=== PATIENT | female | born 1940 | race Caucasian/White ===

== ENCOUNTER → 2016-07-06 | Outpatient (CLI) | payer OTHER ==
[~2016-07-06] VITALS: Ht 170.2 cm; Wt 99.7 kg
[~2016-07-06] MED LIST: ASPIR 8181 MG PO; ASTELIN NASAL SPRAY; ATIVAN0.5 MG PO; BENADRYL25 MG PO; BUSPIRONE HCL15 MG PO; CLARITIN10 MG PO; ERY-TAB250 MG PO; ESTRACE0.5 MG PO; ESTRADIOL 1 MG T1 M1 PO; FLEXERIL PO; FLUCONAZOLE NASAL; HUMALOG100 UNIT/1 SUBQ; HYDROCODONE-AP1 EAC6 PO; KLOR-CON 1010 MEQ PO; LEVEMIR SUBQ; LIPITOR 20 MG T20 M1 PO; MAGNESIUM OXID200 MG PO; NEURONTIN 300300 M1 PO; NOVOFINE SUBQ; NOVOLOG100 UNIT/1 SUBQ; OXYGEN; PEPCID20 MG PO; POTASSIUM CHLO10 MEQ PO; PROAIR HFA8.5 GM; PROTONIX40 M1 PO; QVAR8.7 G1 IH; REQUIP 0.25 M0.25 M1 PO; SYMBICORT160 MCG/4. INH; TRIAMTERENE-HC1 EAC1 PO; VENTOLIN HFA 1818 GM INH; VITAMIN D3400 UNIT PO
--- NOTE | ~2016-07-06 | HPC ---
[facility] [address] [place] [address] PAIN MANAGEMENT CONSULTATION Name: KELI EISENBERG AVA Room #: REG [facility] M..#: [id number] Admission: 07/06/16 Attend Phys: Stephan Montero DO Discharge: Date of : 42 Report #: [id number] THIS REPORT FOR: //name// CC: Stephan Mosqueda DATE OF SERVICE: 07/06/2016 REFERRING PHYSICIAN: Suleiman Do MD CHIEF COMPLAINT: Low back pain, lower extremity pain with paresthesias. HISTORY OF PRESENT ILLNESS: As you know, the patient is a 75-year-old female who has returned today in followup visit to discuss her treatment options for ongoing pain. She indicates that her "sciatic pain" is now intensified. She states she can barely stand or do any activities due to ongoing pain. She places current pain score at around 7/10. She returns today to discuss treatment options. ALLERGIES: SULFA, BACTRIM, ZYRTEC, LEVOFLOXACIN, FLUCONAZOLE and CYCLOBENZAPRINE. CURRENT MEDICATIONS: Lorazepam, atorvastatin, pantoprazole, estradiol, hydrocodone, insulin, magnesium, erythromycin, albuterol, buspirone, Symbicort, cholecalciferol, triamterene/hydrochlorothiazide, potassium, famotidine and gabapentin. IMAGING: No new imaging available. PHYSICAL EXAMINATION: GENERAL: Well developed, well nourished, well-hydrated exogenously obese 75-year-old female appearing stated age, placing current pain score at around 7/10. HEENT: Normocephalic, atraumatic. Pupils equal, round, reactive to light. Extraocular muscles are intact. EXTREMITIES: Show no clubbing, no cyanosis, no edema. MUSCULOSKELETAL: Lower extremity strength equal and symmetrical 5/5, intact to light touch from L1 through S2 dermatomes. Seated straight leg raising negative. Supine straight leg raising positive. ASSESSMENT: 1. Chronic lumbar radiculopathy. 2. Spinal stenosis of lumbar spine. 3. Displacement of lumbar intervertebral disk with radiculopathy. 4. Lumbosacral spondylosis with radiculopathy. [facility] [address] [place] [address] PAIN MANAGEMENT CONSULTATION Name: KELI EISENBERG AVA Room #: REG [facility].#: [id number] Admission: 07/06/16 Attend Phys: Stephan Montero DO Discharge: Date of : 42 Report #: [id number] 5. Lumbar degeneration. 6. Chronic intractable pain. PLAN: 1. The patient returns today in followup visit for medication management. She has done fairly well with the gabapentin taking 2 tabs in the morning and 3 tabs at night. She has requested refill of the medication at this time. She does feel that it provides some benefit without side effects of somnolence, decreased mental acuity, disorientation and confusion. We will continue the patient on this medication at this time. She was given a prescription of #150, 300 mg tablets, 2 in the morning, 3 at night with 2 refills, 3 months' worth of medication. 2. The patient and I had a very long discussion about options for treatment including spinal cord stimulator and surgical options. She is going to look into the spinal cord stimulator as an option for treatment. The patient was given information both in digital and written form today about the spinal cord stimulator. She does need to complete psychiatric evaluation and be deemed an appropriate candidate before we can move forward with the trial. Once she has undergone the psychiatric evaluation, we will then begin planning for trial implantation. The patient was given this information today on the psychiatrist who performs this evaluation. 3. The patient will return to our clinic once she has completed her psychiatric evaluation. At that time, we will begin the planning process of undergoing trial implantation. She will contact us to advise us when she has completed the psychiatric evaluation so that we can have her scheduled back to review the findings of the psychiatric evaluation. We are recommending to this patient the Nevro device for implantation for spinal cord stimulator treatment. <ELECTRONICALLY SIGNED> By: Stephan Montero DO 07/08/16 0753 [id number] Stephan Montero DO /nt
[2016-07-06 09:54] VITALS: BP 133/67
== END ==
LOC: PAIN 06:53
DX: M51.16 Intervertebral disc disorders with radiculopathy, lumbar region (principal); M48.06 Spinal stenosis, lumbar region; M47.26 Other spondylosis with radiculopathy, lumbar region; G89.29 Other chronic pain

== ENCOUNTER → 2017-03-01 | Outpatient (CLI) | payer OTHER ==
[~2017-03-01] VITALS: Ht 170.2 cm; Wt 90.4 kg
[~2017-03-01] MED LIST changes: +LEVEMIR FL100 UNIT/2; +PROAIR HFA8.5 GM PO; +STIOLTO RESPIMAT4 GM
--- NOTE | ~2017-03-01 | HPC ---
[facility] [place] [address] PAIN MANAGEMENT CONSULTATION Name: KELI EISENBERG AVA Room #: REG LUCIA [facility].#: [id number] Admission: 03/01/17 Attend Phys: Stephan Montero DO Discharge: Date of : 42 Report #: [id number] THIS REPORT FOR: //name// CC: Stephan Mosqueda DATE OF SERVICE: 03/01/2017 REFERRING PHYSICIAN: Dr. Do. CHIEF COMPLAINT: Low back pain, lower extremity pain with paresthesias, and right knee pain. HISTORY OF PRESENT ILLNESS: As you know, the patient is a 76-year-old female who returns today in followup visit with 2 different pain generators, one involves the low back radiating down the leg, the other is the right knee. The patient has sought surgical consultation with orthopedics in regards to a total knee arthroplasty on the right. She does have plans to undergo this procedure in the near future. She has been seen by orthopedics, they have advised her total knee arthroplasty, but has yet to make the decision to move forward with surgery. She continues to experience low back pain, lower extremity pain with paresthesias, for which she is seeking evaluation by doctors at [facility] Neurosurgery team. She returns today to discuss continuation of gabapentin therapy as she is finding improvement in symptoms. She is placing pain score 2/10. ALLERGIES: SULFA, BACTRIM, ZYRTEC, LEVOFLOXACIN, FLUCONAZOLE, and CYCLOBENZAPRINE. CURRENT MEDICATIONS: Lorazepam, atorvastatin, pantoprazole, estradiol, hydrocodone, insulin, magnesium, erythromycin, albuterol, buspirone, Symbicort, cholecalciferol, triamterene/hydrochlorothiazide, potassium, famotidine, and gabapentin. IMAGING: No new imaging available. PHYSICAL EXAMINATION: VITAL SIGNS: Blood pressure 112/76, pulse 102, respiratory rate 20 and unlabored, the patient is 97% on room air, height 5 feet 7 inches tall, weight 199.2 pounds, and BMI calculated 31.2. GENERAL: Well-developed, well-nourished, well-hydrated, exogenously obese 76-year-old female, appearing her stated age, placing current pain score 2/10. HEENT: Normocephalic, atraumatic. Pupils are equal, round, and reactive to light. Extraocular muscles are intact. EXTREMITIES: Show no clubbing, no cyanosis, and no edema. [address] [address] PAIN MANAGEMENT CONSULTATION Name: KELI EISENBERG [facility]#: [id number] Admission: 03/01/17 Attend Phys: Stephan Montero DO Discharge: Date of : 42 Report #: [id number] MUSCULOSKELETAL: Lower extremity strength is symmetrical 5/5, intact to light touch from L1 through S2 dermatomes. Seated straight leg raising negative. Supine straight leg raising mildly positive. Janell's test negative. There is noted pain with standing from seated position over the right knee. Active and passive range of motion of the right knee intensifies knee pain. Drawer tests both anterior and posterior negative. Lateral collateral and medial collateral ligaments are intact. ASSESSMENT: 1. Chronic lumbar radiculopathy. 2. Spinal stenosis of the lumbar spine. 3. Displacement of lumbar intervertebral disk with radiculopathy. 4. Lumbosacral spondylosis with radiculopathy. 5. Lumbar degeneration. 6. Right knee osteoarthritis. 7. Chronic intractable pain. PLAN: 1. The patient has returned today in followup visit with 2 different pain generators, the #1 pain generator is in low back and lower extremity secondary to spinal stenosis. The patient is discussing surgical intervention to help with low back pain secondary to spinal stenosis. The patient has appointments with neurosurgery at [facility]. She has plans to have this consultation in the next couple of weeks. She wishes to await their evaluation before moving forward with other treatment options. As you are aware, the patient has had epidural injections, she has had medication management, all of which have provided improvement in symptoms, but only transiently. She remains on gabapentin for which she has questions in regards to today. She does wish to move forward with a surgical consultation to determine if she might be a candidate for surgery. The patient has requested that we provide her neurosurgery team with recent paperwork, we will send what we have available. 2. The patient has questions in regards to her gabapentin, I would recommend continuing the gabapentin at this time, she is at 900 mg at night, this appears to be providing some benefit as the patient's pain today is 2/10. She indicates that she has been having some increased upper extremity and lower extremity swelling, this could be due to the gabapentin, though this would be an unusual presentation given the upper extremity swelling. I would recommend she remain on the gabapentin if plans are to have surgery in the next couple of weeks. If surgery is not planned, then I would have the patient to begin reducing gabapentin to determine if she is receiving any benefit with use. She was provided a refill of her gabapentin today, 300 mg tablets 3 tabs p.o. at bedtime, #90, 2 refills. 3. The patient is following up with her orthopedic surgeon in regards to right knee osteoarthritis, apparently she has been evaluated and advised that she would need a total knee arthroplasty. The patient will need to follow up with orthopedics in regards to this issue. [facility] [address] [place] [address] PAIN MANAGEMENT CONSULTATION Name: KELI EISENBERG AVA Room #: REG LUCIA [facility]#: [id number] Admission: 03/01/17 Attend Phys: Stephan Montero DO Discharge: Date of : 42 Report #: [id number] 4. We will see the patient back in followup visit on an as needed basis for continuation of medication therapy, certainly we would see her back if epidurals are requested. <ELECTRONICALLY SIGNED> By: Stephan Montero DO 03/09/17 0902 [id number] Stephan Montero DO /nt
[2017-03-01 10:39] VITALS: BP 112/76
== END ==
LOC: PAIN 06:54
DX: M54.16 Radiculopathy, lumbar region (principal); M47.897 Other spondylosis, lumbosacral region; M17.11 Unilateral primary osteoarthritis, right knee; M48.061 Spinal stenosis, lumbar region without neurogenic claudication; G89.29 Other chronic pain; Z88.2 Allergy status to sulfonamides; Z88.1 Allergy status to other antibiotic agents; Z88.6 Allergy status to analgesic agent; Z88.8 Allergy status to other drugs, medicaments and biological substances

== ENCOUNTER → 2017-11-01 | Outpatient (CLI) | payer OTHER ==
[~2017-11-01] VITALS: Ht 172.7 cm; Wt 102.1 kg
--- NOTE | ~2017-11-01 | HPC ---
[facility] [address] [place] [address] PAIN MANAGEMENT CONSULTATION Name: KELI EISENBERG AVA Room #: REG LUCIA [facility].#: [id number] Admission: 11/01/17 Attend Phys: Stephan Montero DO Discharge: Date of : 42 Report #: [id number] THIS REPORT FOR: //name// CC: Stephan Mosqueda DATE OF SERVICE: 11/01/2017 CHIEF COMPLAINT: Low back pain, lower extremity pain with paresthesias, right knee pain. HISTORY OF PRESENT ILLNESS: As you know, the patient is a 77-year-old female with longstanding history of low back pain, lower extremity pain with paresthesias and intermittent right knee pain due to osteoarthritis. The patient returns today in followup visit for continuation of medication therapy. She feels the gabapentin 900 mg at night is working beneficially for pain control. She returns requesting 3-month prescriptions as the cost of this medication is much reduced when receiving 3-month prescriptions. She does indicate recent change in her medical history. She is apparently suffering from fairly extensive and serious cirrhosis of the liver. The patient reports off and on alcohol user and is concerning that the patient may be experiencing side effects of medications. Her primary care physician is working this up currently. She returns for the refill of gabapentin to continue analgesic benefit. ALLERGIES: SULFA, BACTRIM, ZYRTEC, LEVOTHYROXINE, FLUCONAZOLE AND CYCLOBENZAPRINE. CURRENT MEDICATIONS: Aspirin, diphenhydramine, loratadine, famotidine, albuterol, triamterene/hydrochlorothiazide, cholecalciferol, Symbicort, buspirone, magnesium oxide, estradiol, pantoprazole, atorvastatin, insulin, potassium, lorazepam, hydrocodone, tiotropium bromide, gabapentin. SOCIAL HISTORY: The patient reports herself as a nonsmoker. Denies IV or illicit drug use. Admits to minimal alcohol intake per week. She is unaccompanied today. IMAGING: No new imaging available. PQRS: The patient has osteoarthritis of the bilateral hips, bilateral knees and bilateral shoulders. She has a diagnosis of rheumatoid arthritis. She is not a fall risk, has not had a fall in the last 3 months. She is not on blood thinner. She is treated for hypertension. She has not been on opioids for greater than 6 months. She has a low assessment risk for opioid dependency. She places functional pain impact score of 40/70. Moderate interference. [address] [address] PAIN MANAGEMENT CONSULTATION Name: KELI EISENBERG [facility] Room #: REG [facility].#: [id number] Admission: 11/01/17 Attend Phys: Stephan Montero DO Discharge: Date of : 42 Report #: [id number] PHYSICAL EXAMINATION: VITAL SIGNS: Blood pressure 126/68, pulse 81, respiratory rate 16 and unlabored. The patient is 100% on room air. Height 5 feet 8 inches tall, weight 225 pounds, BMI calculated 34.2. GENERAL: Well-developed, well-nourished, well-hydrated 77-year-old female, appearing her stated age, placing current pain score at around 2/10. HEENT: Normocephalic, atraumatic. Pupils are equal, round, reactive to light. Extraocular muscles are intact. Sclerae nonicteric without injection. EXTREMITIES: Show no clubbing, no cyanosis, no edema. MUSCULOSKELETAL: Lower extremity strength is symmetrical 5/5, intact to light touch from L1 through S2 dermatomes. Seated straight leg raising negative. Supine straight leg raising is mildly positive. Janell's test negative. ASSESSMENT: 1. Chronic lumbar radiculopathy. 2. Spinal stenosis of the lumbar spine. 3. Displacement of lumbar intervertebral disk with radiculopathy. 4. Lumbosacral spondylosis with radiculopathy. 5. Lumbar degeneration. 6. Osteoarthritis of the weightbearing joints. 7. Chronic intractable pain. PLAN: 1. The patient returns today in followup visit where she is described to workup for cirrhosis of the liver. Apparently, there is a very advanced disease process. They are looking into medications as the source of her symptoms as she reports herself as a nonalcohol user. She returns today stating that she has had no symptoms from chronic liver disease to date. Apparently, she was being evaluated for fatty liver in the past, but this apparently now is looking more like a severe cirrhosis issue. We will defer to the primary team for further evaluation and treatment for this condition. 2. The patient has returned today requesting refill on gabapentin. She feels gabapentin works very well for pain control. She indicates that the medication provides no side effects and does provide good efficacy of relieving to pain level of only 2/10, which is tolerable for her. I advised the patient at this time that gabapentin is safe even in chronic liver patient's as it does not require any metabolism and does not utilize the cytochrome P450 system. In fact, this medication is fully excreted 100% as gabapentin. This is safe for the patient at this time, no adjustments need to be made. 3. The patient was provided a prescription of gabapentin 300 mg dose 3 tabs p.o. at bedtime. I have given the patient #270, which is 3 months' worth of prescriptions and 3 refills, equaling 1 year of medication. 4. We will see the patient back in followup visit in 1 year for medication therapy. She can follow up with her PCP to receive this medication and will [facility] [address] [place] [address] PAIN MANAGEMENT CONSULTATION Name: ELGINKELI AVA Room #: REG LUCIA Gal[facility]iz#: [id number] Admission: 11/01/17 Attend Phys: Stephan Montero DO Discharge: Date of : 42 Report #: [id number] return to see us when she runs low of the treatment or requires any interventional treatments. <ELECTRONICALLY SIGNED> By: Stephan Montero DO 11/08/17 1259 [id number] 38 Stephan Montero DO /nt
[2017-11-01 12:27] VITALS: BP 126/68
== END ==
LOC: PAIN 07:16
DX: M47.27 Other spondylosis with radiculopathy, lumbosacral region (principal); M51.16 Intervertebral disc disorders with radiculopathy, lumbar region; M48.061 Spinal stenosis, lumbar region without neurogenic claudication; G89.4 Chronic pain syndrome; M17.0 Bilateral primary osteoarthritis of knee; M19.011 Primary osteoarthritis, right shoulder; M19.012 Primary osteoarthritis, left shoulder; Z79.899 Other long term (current) drug therapy

== ENCOUNTER → 2018-10-03 | Outpatient (CLI) | payer OTHER | LOC: RAD 10:21 | DX: J44.9 Chronic obstructive pulmonary disease, unspecified (principal); J98.4 Other disorders of lung; M47.814 Spondylosis without myelopathy or radiculopathy, thoracic region; Z88.8 Allergy status to other drugs, medicaments and biological substances; Z88.2 Allergy status to sulfonamides; Z90.49 Acquired absence of other specified parts of digestive tract ==

== ENCOUNTER → 2018-11-07 | Outpatient (CLI) | payer OTHER ==
[~2018-11-07] VITALS: Ht 172.7 cm; Wt 100.2 kg
[2018-11-07 13:19] VITALS: BP 151/62
--- NOTE | 2018-11-07 13:41 | NUR ---
Pain Clinic Assessment: 1. History of Osteoarthritis: HANDS LEFT HIP ARMS LEGS History of Rheumatoid Arthritis: DENIES 2. Height: 5 ft. 8 in. 172.7 cm. Weight: 220.8 lb. oz. 100.154 kg. Patient's BMI: 33.6 3. Vital Signs: BP: 151/62 Pulse: 70 Resp: 16 Temp: 02 Sat: 97 ECG Mon: 4. Pain Intensity: 6 5. Fall Risk: Dizziness: Y Needs help standing or walking: N Fallen in the last 3 months: N Fall risk comments: 6. Patient on Blood Thinner: None 7. History of Hypertension: N 8. Opioid Therapy greater than 6 weeks: N Opiate Contract Signed: 9. Risk Assessment Tool Provided: 3-LOW 10. Functional Assessment Tool: 11. Recreational Drug Use: Never Drug Type: Tobacco Use: Former Smoker Tobacco Type: Amount or Packs/day: How Many Years: Alcohol Use: Past use Frequency: Quant:
--- NOTE | 2018-11-08 08:46 | HPC ---
[facility] [address] [place] [address] PAIN MANAGEMENT CONSULTATION Name: ELGINKELICORA ESCALANTE Room #: REG [facility].#: [id number] Admission: 11/07/18 Attend Phys: Latrice Hearn Discharge: Date of : 42 Report #: [id number] THIS REPORT FOR: //name// CC: Latrice Hearn Noah Mosqueda DATE OF SERVICE: 11/07/2018 CHIEF COMPLAINT: Low back pain, left lower extremity pain and paresthesias and right knee pain. HISTORY OF PRESENT ILLNESS: This is a 78-year-old female, who returns to the pain clinic for her longstanding history of low back pain and lower extremity pain, most specifically her left hip and right leg as well as ongoing hand pain. She does use gabapentin to help relieve some of this discomfort and find it very beneficial and would like a refill of these medications today. She tells me she has cirrhosis of the liver, reports that it is a non-alcoholic related, though she does have a history of alcohol use in the past. She tells me she is being worked up and followed by her primary physician and specialist, though she is looking for different specialists and unsure of those names currently. The patient reports a pain score of 6/10, worse with walking and activity. ALLERGIES: SULFA, BACTRIM, ZYRTEC, LEVAQUIN, LATEX, MOLD, CYCLOBENZAPRINE. CURRENT LIST OF MEDICATIONS: Gabapentin 300 mg at bedtime, Levemir insulin, lorazepam 0.5 mg b.i.d., potassium 10 mEq b.i.d., insulin Humalog sliding scale, atorvastatin 20 mg at bedtime, Protonix 40 mg daily, Mag-Ox daily, buspirone 15 mg half in the morning, one at night, vitamin D3, triamterene/hydrochlorothiazide daily, Pepcid daily, Benadryl p.r.n., and 81 mg aspirin. PQRS: 1. She has arthritic changes in her hips, bilateral knees, shoulders and hands. She has a diagnosis of rheumatoid arthritis as well. 2. Height is 5 feet 8 inches, weight is 220, BMI is 33. 3. Vital signs 151/62, pulse is 70, respirations 16, oxygen sat is 97. 4. Pain score 6/10. 5. Complains of slight dizziness, does not need help walking or standing, has not fallen in the last 3 months. 6. The patient is not on any blood thinners and does not take medicine for hypertension. 7. She does not take opioid therapy. Her risk assessment tool is low. Functional assessment is 30/70. 8. Recreational drug use, she denies. She is a former smoker and does not drink alcohol currently, but has in the past. [address] [address] PAIN MANAGEMENT CONSULTATION Name: KELI EISENBERG AVA Room #: REG [facility]#: [id number] Admission: 11/07/18 Attend Phys: Latrice Hearn Discharge: Date of : 42 Report #: [id number] PHYSICAL EXAMINATION: GENERAL: This is a well-developed, well-nourished, well-hydrated 78-year-old female who appears her stated age, placing her current pain score at 6/10 today. HEENT: Normocephalic, atraumatic. Pupils equal, round and reactive to light. EXTREMITIES: No clubbing, no cyanosis, no edema. MUSCULOSKELETAL: Lower extremity strength is symmetrical at 5/5. She walks with a normal gait. She complains of tenderness in her lower back that does radiate into her right leg. She is intact to light touch from L1 through S2 dermatomes. Seated straight leg raising is negative. ASSESSMENT: 1. Chronic lumbar radiculopathy. 2. Spinal stenosis of lumbar spine. 3. Displacement of the lumbar intervertebral disk with radiculopathy. 4. Lumbosacral spondylosis with radiculopathy. 5. Osteoarthritis of numerous joints. 6. Chronic intractable pain. 7. History of cirrhosis of the liver. PLAN: 1. The patient returns today for followup visit for a refill of her gabapentin, which she finds very beneficial in controlling her pain. She does not indicate that she has any side effects from this medicine, though she does tell me occasionally she will sleep greater than 10 hours a day. She feels this is normal for her. She would like refills of her gabapentin, which she does take all 3 of the pills at bedtime. 2. I did encourage her that if she would like to try to take them in the morning and 2 at bedtime, she may try that or even try to decrease to 2 tablets at bedtime to see if she notices any difference in her pain. If her increases, then to resume her 3 tablets. Scripts given today for gabapentin 300 mg 3 tablets, #270 with 3 additional refills. This is 1-year of medication. 3. The patient may follow up in 1 year or she may get this medicine from her primary care office, therefore reducing one doctor that she needs to see. 4. The patient is seen in collaboration with Dr. Stephan Montero, who did see the patient as well. <ELECTRONICALLY SIGNED> By: Latrice Hearn 11/08/18 [id number] [id number] Latrice Hearn /missy
== END ==
LOC: PAIN 06:52
DX: M48.062 Spinal stenosis, lumbar region with neurogenic claudication (principal); M51.16 Intervertebral disc disorders with radiculopathy, lumbar region; M47.27 Other spondylosis with radiculopathy, lumbosacral region; M19.90 Unspecified osteoarthritis, unspecified site; G89.4 Chronic pain syndrome; K74.60 Unspecified cirrhosis of liver; Z91.040 Latex allergy status; Z88.8 Allergy status to other drugs, medicaments and biological substances; Z88.2 Allergy status to sulfonamides; Z79.899 Other long term (current) drug therapy; Z79.4 Long term (current) use of insulin

== ENCOUNTER → 2019-06-22 | Outpatient (CLI) | payer OTHER | LOC: CAT 04-23 08:16 | DX: Z12.2 Encounter for screening for malignant neoplasm of respiratory organs (principal); R91.1 Solitary pulmonary nodule; E04.8 Other specified nontoxic goiter; I25.10 Atherosclerotic heart disease of native coronary artery without angina pectoris; I70.0 Atherosclerosis of aorta; Z87.891 Personal history of nicotine dependence ==

== ENCOUNTER → 2020-01-08 | Outpatient (CLI) | payer OTHER | LOC: RAD 15:43 | PROVIDERS: ATTEND Internal Medicine | DX: R06.00 Dyspnea, unspecified (principal) ==

== ENCOUNTER → 2020-04-02 | Outpatient (CLI) | payer OTHER ==
[~2020-04-02] MED LIST changes: +ANORO ELLIPTA1 EACH INH; +NEURONTIN300 MG PO; +PROAIR RESPICL90 MCG INH
== END ==
LOC: CAT 03-10 12:22
PROVIDERS: ATTEND Internal Medicine
DX: R91.1 Solitary pulmonary nodule (principal); J44.9 Chronic obstructive pulmonary disease, unspecified; J44.1 Chronic obstructive pulmonary disease with (acute) exacerbation; J32.9 Chronic sinusitis, unspecified; R05 Cough; Z87.01 Personal history of pneumonia (recurrent); N20.0 Calculus of kidney

== ENCOUNTER → 2020-04-02 | Outpatient (CLI) | payer OTHER ==
[~2020-04-02] VITALS: Ht 172.7 cm; Wt 103.0 kg
[2020-04-02 13:40] VITALS: BP 166/69
--- NOTE | 2020-04-02 13:47 | NUR ---
Pain Clinic Assessment: 1. History of Osteoarthritis: HANDS LEFT HIP ARMS LEGS History of Rheumatoid Arthritis: DENIES 2. Height: 5 ft. 8 in. 172.7 cm. Weight: 227.0 lb. oz. 102.967 kg. Patient's BMI: 34.5 3. Vital Signs: BP: 166/69 Pulse: 61 Resp: 18 Temp: 02 Sat: 96 ECG Mon: 4. Pain Intensity: 6 5. Fall Risk: Dizziness: N Needs help standing or walking: N Fallen in the last 3 months: N Fall risk comments: 6. Patient on Blood Thinner: None 7. History of Hypertension: N 8. Opioid Therapy greater than 6 weeks: N Opiate Contract Signed: 9. Risk Assessment Tool Provided: 3-LOW 10. Functional Assessment Tool: 11. Recreational Drug Use: Never Drug Type: Tobacco Use: Former Smoker Tobacco Type: Amount or Packs/day: How Many Years: Alcohol Use: Past use Frequency: Quant:
--- NOTE | 2020-04-03 12:49 | HPC ---
[facility] [address] [place] [address] PAIN MANAGEMENT CONSULTATION Name: KELI EISENBERG AVA Room #: REG LUCIA Armas.#: [id number] Admission: 04/02/20 Attend Phys: Latrice Hearn Discharge: Date of : 44 Report #: [id number] THIS REPORT FOR: cc: Jaylin Terrazas,Noah Gil MD, Jr., MD, Amanda CNS ~ DATE OF SERVICE: 04/02/2020 CHIEF COMPLAINT: Low back pain, left lower extremity pain and paresthesias. HISTORY OF PRESENT ILLNESS: This is a 79-year-old female who returns today for discussion on her gabapentin. She reports that in the past year since we have seen her, she has had numerous esophageal varices requiring her to have them tied that caused her significant pain in her throat. During that time, she did decrease her gabapentin use and has continued to tolerate her pain on the lower dose; therefore, we have not seen her in greater than a year because she had plenty of medications. The patient reports that she has had pneumonia bouts for the past several months and has been on antibiotic treatment through her stripe matcher. She recently underwent a chest x-ray and is worried that she may have cancer, but is hopeful that that is not the case. She states today that she has had urinary tract infection now. The patient reports that her pain that we typically see her for is 6/10, mostly located in her low back that does radiate down her left leg. It is an aching, tingly sensation, worse with activity. She believes that repositioning as well as taking her gabapentin is beneficial. She does not take any opioid medications for her ongoing pain. ALLERGIES: SULFA, BACTRIM, ZYRTEC, LEVAQUIN, LATEX, FLUCONAZOLE AND FLEXERIL. CURRENT LIST OF MEDICATIONS: Anoro Ellipta, albuterol, gabapentin, Levemir, Ativan, potassium, Humalog insulin, Lipitor, Protonix, oxygen at night, buspirone, vitamin D, triamterene/hydrochlorothiazide, Pepcid, Claritin, Benadryl, aspirin. PQRS: 1. She has osteoarthritic changes that are diffuse in her hands, hips, arms and legs. Denies any rheumatoid arthritis. 2. Height is 5 feet 8 inches, weight is 227, BMI is 34. 3. Vital signs 166/69, pulse is 61, respirations 18, oxygen sat is 96%. 4. Pain score is 6/10. 5. Denies dizziness, does not need help walking, has not fallen in the last 3 months. The patient is not on any blood thinners or medicine for hypertension. 6. Opioid therapy is not on. Her risk assessment is low. Functional assessment [address] [address] PAIN MANAGEMENT CONSULTATION Name: KELI EISENBERG AVA Room #: REG LUCIA Galaviz#: [id number] Admission: 04/02/20 Attend Phys: Latrice Hearn Discharge: Date of : 44 Report #: [id number] is 30/70. 7. Recreational drug use, she denies. She is a former smoker and does not use alcohol currently, she has in the past. PHYSICAL EXAMINATION: GENERAL: This is a well-developed, well-nourished, well-hydrated, slightly obese 79-year-old female who appears her stated age, placing her current pain score at 6/10. She is a good historian and answering my questions appropriately and her speech is fluent. HEENT: Normocephalic, atraumatic. Pupils equal, round and reactive to light. EXTREMITIES: No clubbing, no cyanosis, no edema. MUSCULOSKELETAL: She has tenderness in her low back that radiates into her legs bilaterally. She is intact to light touch from L1-S2. She has a normal gait. Seated straight leg raising is negative. LUNGS: Diminished nonproductive cough presently. IMPRESSION: 1. Chronic lumbar radiculopathy. 2. Spinal stenosis of lumbar spine. 3. Displacement of the lumbar intervertebral disk with radiculopathy. 4. Lumbosacral spondylosis with radiculopathy. 5. Osteoarthritis involving multiple joints. 6. History of cirrhosis of the liver. PLAN: 1. We discussed treatment options with the patient today. The patient has been able to decrease some of her gabapentin; therefore, she has been here longer than one year for refills of her medication. Today, we will continue her on 900 mg at bedtime, taking 300 mg tablets, quantity 270 sent for 3-month supply with 2 refills. 2. I did explain to the patient that she may have her primary care doctor write this. Therefore, she would not need to come to our office. The patient will decide before her next yearly checkup. 3. The patient is seen in collaboration with Dr. Stephan Montero. <ELECTRONICALLY SIGNED> By: Latrice Hearn 04/03/20 [id number] Latrice Hearn /nt
== END ==
LOC: PAIN 06:58
PROVIDERS: ATTEND Clinical Nurse Specialist Adult Health
DX: M51.16 Intervertebral disc disorders with radiculopathy, lumbar region (principal); M47.27 Other spondylosis with radiculopathy, lumbosacral region; M19.90 Unspecified osteoarthritis, unspecified site; M79.605 Pain in left leg; R20.2 Paresthesia of skin; M48.061 Spinal stenosis, lumbar region without neurogenic claudication; Z87.19 Personal history of other diseases of the digestive system; Z88.8 Allergy status to other drugs, medicaments and biological substances; Z79.899 Other long term (current) drug therapy